=== PATIENT | male | born 1995 ===

== ENCOUNTER 2022-01-23 18:28 | Emergency (ER) | payer SELFPAY ==
[2022-01-23 19:16] VITALS: BP 140/87
[2022-01-23] MEDS ORDERED: oxyCODONE /ACETAMINOPHEN 5-325MG TAB PO ONE (19:20)
--- NOTE | 2022-01-23 19:29 | Emergency Department Report ---
ED Upper Extremity Inj HPI - General Chief Complaint: Extremity Injury, Upper Stated Complaint: RT ARM INJURY Time Seen by Provider: 01/23/22 19:17 Source: patient Mode of arrival: Ambulatory Limitations: No Limitations - History of Present Illness Initial Comments: 26-year-old male employee presents emergency department complaining of crush injury to the right forearm while at work and dealing with stress. States that they closed compression on his arm resulting in a crush injury pain is dull throbbing pain. Complaint: Injury to:: right, forearm -: Gradual Other Extremity Injury: Forearm: Right Other Injuries: none Handedness: right Place: home Improves With: none Worsens With: none Context: direct blow, crush Associated Symptoms: denies other symptoms - Related Data Previous Rx's Medication Instructions Recorded Last Taken Type Ketorolac [Toradol] 10 mg PO Q6H PRN #14 01/23/22 Unknown Rx Allergies Allergy/AdvReac Type Severity Reaction Status Date / Time No Known Allergies Allergy Unverified 01/23/22 19:16 ED Review of Systems ROS: Stated complaint: RT ARM INJURY Other details as noted in HPI Comment: All other systems reviewed and negative ED Past Medical Hx - Past Medical History Previous Medical History?: No - Surgical History Past Surgical History?: No - Medications Home Medications: Home Medications Medication Instructions Recorded Confirmed Last Taken Type Ketorolac [Toradol] 10 mg PO Q6H PRN #14 01/23/22 Unknown Rx ED Physical Exam - General Limitations: No Limitations General appearance: alert, in no apparent distress - Head Head exam: Present: atraumatic, normocephalic - Eye Eye exam: Present: normal appearance, PERRL, EOMI Pupils: Present: normal accommodation - ENT ENT exam: Present: normal exam, normal orophraynx, mucous membranes moist, TM's normal bilaterally - Neck Neck exam: Present: normal inspection, full ROM - Respiratory Respiratory exam: Present: normal lung sounds bilaterally. Absent: respiratory distress - Cardiovascular Cardiovascular Exam: Present: regular rate, normal rhythm. Absent: systolic murmur, diastolic murmur, rubs, gallop - GI/Abdominal GI/Abdominal exam: Present: soft, normal bowel sounds - Rectal Rectal exam: Present: deferred - Extremities Exam Extremities exam: Present: normal inspection, tenderness - Expanded Upper Extremity Exam Right Shoulder Exam: Present: normal inspection Upper Arm exam: Present: normal inspection Forearm Wrist exam: Present: tenderness, swelling. Absent: abrasion, laceration, crepidus, dislocation, erythema, tenderness over anatomical snuff box Hand Wrist exam: Present: normal inspection, full ROM Vascular: Present: normal capillary refill. Absent: vascular compromise - Back Exam Back exam: Present: normal inspection - Neurological Exam Neurological exam: Present: alert, oriented X3 - Psychiatric Psychiatric exam: Present: normal affect, normal mood - Skin Skin exam: Present: warm, dry, intact, normal color. Absent: rash ED Course Vital Signs 01/23/22 19:15 Temperature 98.1 F Pulse Rate 79 Respiratory 16 Rate Blood Pressure 140/87 [Right] O2 Sat by Pulse 100 Oximetry ED Medical Decision Making - Radiology Data Radiology results: report reviewed [facility] [address] [place] [address] XRay Report Signed Patient: GENE GILBERT MR#: [id number] : 1995 Acct:[id number] Age/Sex: 26 / M ADM Date: 01/23/22 Loc: ED Attending Dr: Ordering Physician: ESA MONGE Date of Service: 01/23/22 Procedure(s): XR forearm RT Accession Number(s): [id number] cc: ESA MONGE Fluoro Time In Minutes: RIGHT FOREARM 3 VIEW(S) INDICATION / CLINICAL INFORMATION: pain and swelling. crush injury COMPARISON: None available. FINDINGS: BONES / JOINT(S): No acute fracture or subluxation. No significant arthritis. SOFT TISSUES: No significant abnormality. ADDITIONAL FINDINGS: None. IMPRESSION: 1. No acute findings. No significant abnormality. Signer Name: Alessio Perea II, MD Signed: 01/23/2022 7:59 PM Workstation Name: [id number] Transcribed By: SUSAN Dictated By: ALESSIO PEREA II, MD Electronically Authenticated By: ALESSIO PEREA II, MD Signed Date/Time: 01/23/221958 DD/ 57 TD/TT: Print Cancel - Medical Decision Making 26-year-old male presents emerge department status post crush injury by a trash can device while at work today and presented to the ED Suspecting forearm fracture after following up at [facility]. X-ray did not show any osseous injuries discussed with him the crush injury stress muscular contusion/trauma Critical care attestation.: If time is entered above; I have spent that time in minutes in the direct care of this critically ill patient, excluding procedure time. ED Disposition Clinical Impression: Crush injury, Forearm contusion Disposition: HOME / SELF CARE / HOMELESS Is pt being admited?: No Does the pt Need Aspirin: No Condition: Stable Instructions: Contusion, [id number], How to Use Cold Therapy, [id number], Crush Injury of the Hand Additional Instructions: X-ray showed no evidence of any broken bones. Please keep the sling on for comfort and utilize ice compression and elevation as well as analgesic pain medication to help control your discomfort. Prescriptions: Ketorolac [Toradol] 10 mg PO Q6H PRN #14 PRN Reason: Pain
--- NOTE | 2022-01-23 20:03 | XRay Report ---
RIGHT FOREARM 3 VIEW(S) INDICATION / CLINICAL INFORMATION: pain and swelling. crush injury COMPARISON: None available. FINDINGS: BONES / JOINT(S): No acute fracture or subluxation. No significant arthritis. SOFT TISSUES: No significant abnormality. ADDITIONAL FINDINGS: None. IMPRESSION: 1. No acute findings. No significant abnormality. Signer Name: Luis Perea II, MD Signed: 01/23/2022 7:59 PM Workstation Name: [id number]
== END 2022-01-24 00:23 | disposition home or self-care (01) ==
LOC: ED 18:28
DX: S50.11XA Contusion of right forearm, initial encounter (principal); S57 Crushing injury of elbow and forearm; X58.XXXA Exposure to other specified factors, initial encounter; Y93.89 Activity, other specified; Y92.89 Other specified places as the place of occurrence of the external cause; Y99.8 Other external cause status
CPT/HCPCS: 99283